=== PATIENT | female | born 1975 | race Caucasian/White ===

== ENCOUNTER 2020-02-04 13:53 | Emergency (ER) | payer MEDICAID ==
[~2020-02-04] VITALS: Ht 165.1 cm; Wt 75.0 kg
[2020-02-04] MEDS ORDERED: ACETAMINOPHEN 325MG TABLET PO STA (14:57)
[2020-02-04 16:05] LABS: BASOPHILS % 0.2 % (0.0-2.0); EOSINOPHILS % 0.4 % (0.0-5.0); HEMATOCRIT. 33.8 % (36.0-48.0); HEMOGLOBIN. 11.7 g/dL (12.0-16.0); LYMPHOCYTES % 15.5 % (20.0-50.0); MEAN CORPUSCULAR HEMOGLOBIN 30.8 pg (28.0-32.0); MEAN CORPUSCULAR VOLUME 88.5 fL (81.0-99.0); MEAN PLATELET VOLUME 8.9 fl (7.4-10.4); MONOCYTES % 7.2 % (2.0-8.0); NEUTROPHILS % 76.7 % (40.0-76.0); PLATELET 183 x1000/uL (130-400); RED BLOOD CELL COUNT 3.82 mill/uL (4.2-5.4); RED CELL DISTRIBUTION WIDTH 14.6 % (11.6-14.6)
[2020-02-04 16:11] LABS: CHLORIDE 109 mEq/L (98-107)
[2020-02-04 18:00] VITALS: BP 119/59
== END 2020-02-04 18:15 | disposition home or self-care (01) ==
LOC: ER 14:25
DX: I10 Essential (primary) hypertension (principal)
CPT/HCPCS: 36415; 71045; 80053; 83880; 84484; 85025; 93005; 99285

== ENCOUNTER → 2020-02-21 | Outpatient (CLI) | payer MEDICAID ==
[~2020-02-21] MED LIST: AMLO5TAB88 MT; ASPI-986 MT; FERR-71 MT; FOLI0.4T2 MT; IBUP-2030 MT; PNV1TABL76 MT
== END | disposition home or self-care (01) ==
LOC: LAB 12:56
PROVIDERS: ATTEND Obstetrics & Gynecology
DX: Z03.818 Encounter for observation for suspected exposure to other biological agents ruled out (principal); Z3A.39 39 weeks gestation of pregnancy
CPT/HCPCS: C9803; U0003